=== PATIENT | female | born 1930 | race Caucasian/White ===

== ENCOUNTER 2018-08-17 17:39 | Emergency (ER) | payer MEDICARE, BC ==
[2018-08-17] MEDS: HYDROCODONE/APAP (5/325) TAB PO (18:44)
== END 2018-08-17 19:08 | disposition home or self-care (01) ==
LOC: E/R 17:39
DX: S83.105A Unspecified dislocation of left knee, initial encounter (principal); R40.2142 Coma scale, eyes open, spontaneous, at arrival to emergency department; R40.2252 Coma scale, best verbal response, oriented, at arrival to emergency department; R40.2362 Coma scale, best motor response, obeys commands, at arrival to emergency department; I10 Essential (primary) hypertension; E03.9 Hypothyroidism, unspecified; X58.XXXA Exposure to other specified factors, initial encounter; Y92.9 Unspecified place or not applicable; Z96.652 Presence of left artificial knee joint
CPT/HCPCS: 73562; 99283-25